=== PATIENT | female | born 1990 ===

== ENCOUNTER 2019-10-14 08:58 | Inpatient (IN) | payer MEDICAID ==
[2019-10-14] MEDS ORDERED: Methylergonovine 0.2 MG/1 ML Amp IM PRN ×2 (11:06→18:56)
[2019-10-14] MEDS ORDERED: Carboprost Tromethamine 250 MCG/1 ML Amp IM PRN (11:06)
[2019-10-14] MEDS ORDERED: Water For Irrigation,Sterile 1,000 ML Container IRR PRN (11:06)
[2019-10-14] MEDS ORDERED: Sodium Chloride 0.9% 10 ML Syringe FLUSH PRN (11:06)
[2019-10-14] MEDS ORDERED: Tranexamic Acid 1,000 MG in Sodium Chloride 0.9% 100 ML IV PRN ×2 (11:06→18:56)
[2019-10-14] MEDS ORDERED: Lidocaine 1% 50 ML MDV INJECT PRN (11:06)
[2019-10-14] MEDS ORDERED: Butorphanol 1 MG/ML SDV IVPUSH PRN (11:06)
[2019-10-14] MEDS ORDERED: Misoprostol 200 MCG Tab PO PRN (11:06)
[2019-10-14] MEDS ORDERED: Sodium Chloride 0.9% 10 ML SDV IV PRN (11:06)
[2019-10-14] MEDS ORDERED: Nalbuphine 10 MG/1 ML Vial IVPUSH PRN (11:06)
[2019-10-14] MEDS ORDERED: Oxytocin/0.9 % Sodium Chloride 30 UNIT/500 ML BAG IV SCH ×2 (11:15→16:15)
[2019-10-14] MEDS: Lactated Ringers 1,000 ML IV SCH ×4 (11:30→18:22)
[2019-10-14] MEDS ORDERED: fentaNYL 100 MCG/2 ML SDV ONE (12:02)
[2019-10-14] MEDS ORDERED: Ropivacaine HCl/PF 100 ML ONE (12:02)
--- NOTE | 2019-10-14 12:27 | PCM.PREANE ---
Preanesthetic Assessment - Anesthesia/Transfusion/Family Hx Anesthesia History: Prior Anesthesia Without Reaction Family History of Anesthesia Reaction: No - Physical Assessment NPO Status Date: 10/14/19 NPO Status Time: 08:00 Height: 1.78 m Weight: 87.543 kg ASA Class: 1 - Lab Values: Laboratory Last Values WBC 21.38 K/uL (4.0-11.0) H 10/14/19 11:25 RBC 4.31 M/uL (4.30-5.90) 10/14/19 11:25 Hgb 11.2 g/dL (12.0-16.0) L 10/14/19 11:25 Hct 34.0 % (36.0-46.0) L 10/14/19 11:25 MCV 78.9 fL (80.0-98.0) L 10/14/19 11:25 MCH 26.0 pg (27.0-32.0) L 10/14/19 11:25 MCHC 32.9 g/dL (31.0-37.0) 10/14/19 11:25 RDW Std Deviation 42.0 fl (28.0-62.0) 10/14/19 11:25 RDW Coeff of Nuzhat 15 % (11.0-15.0) 10/14/19 11:25 Plt Count 275 K/uL (150-400) 10/14/19 11:25 MPV 10.40 fL (7.40-12.00) 10/14/19 11:25 Nucleated RBC % 0.0 /100WBC 10/14/19 11:25 Nucleated RBCs # 0 K/uL 10/14/19 11:25 Blood Type B POSITIVE 10/14/19 11:25 Antibody Screen NEGATIVE 10/14/19 11:25 - Allergies Allergies/Adverse Reactions: Allergies Allergy/AdvReac Type Severity Reaction Status Date / Time No Known Allergies Allergy Verified 10/14/19 09:34 - Acknowledgements Anesthesia Type Planned: Epidural Pt an Appropriate Candidate for the Planned Anesthesia: Yes Alternatives and Risks of Anesthesia Discussed w Pt/Guardian: Yes Pt/Guardian Understands and Agrees with Anesthesia Plan: Yes PreAnesthesia Questionnaire - HOME MEDS Home Medications: Home Meds 95/Iron Fum/Folic/Dha [ + Dha Combo Pack] 1 each PO DAILY 10/14 [History] - CURRENT (IN HOUSE) MEDS Current Meds: Current Medications Butorphanol Tartrate (Stadol) 1 mg IVPUSH ASDIRECTED PRN PRN Reason: Pain Carboprost Tromethamine (Hemabate Ds) 250 mcg IM ASDIRECTED PRN PRN Reason: Post Hemorrhage Tranexamic Acid 1,000 mg/ (Sodium Chloride) 110 mls @ 660 mls/hr IV ONETIME PRN PRN Reason: Bleeding Lactated Ringer's (Ringers, Lactated) 1,000 mls @ 150 mls/hr IV ASDIRECTED BEATRIZ Last Admin: 10/14/19 11:30 Dose: 999 mls/hr Oxytocin/Sodium Chloride (Oxytocin 30 Unit/500 Ml-Ns) 30 unit in 500 mls @ 999 mls/hr IV TITRATE [facility] Lidocaine HCl (Xylocaine 1%) 50 ml INJECT ONETIME PRN PRN Reason: Laceration repair Methylergonovine Maleate (Methergine) 0.2 mg IM ASDIRECTED PRN PRN Reason: Post Hemorrhage Misoprostol (Cytotec) 200 mcg PO ONETIME PRN PRN Reason: Post Hemorrhage Nalbuphine HCl (Nubain) 10 mg IVPUSH ASDIRECTED PRN PRN Reason: Pain (severe 7-10) Sodium Chloride (Saline Flush) 10 ml FLUSH ASDIRECTED PRN PRN Reason: Keep Vein Open Sodium Chloride (Normal Saline) 10 ml IV ASDIRECTED PRN PRN Reason: IV Use Sterile Water (Sterile Water For Irrigation) 1,000 ml IRR ASDIRECTED PRN PRN Reason: delivery Discontinued Medications Fentanyl (Sublimaze) Confirm Administered Dose 100 mcg .ROUTE .STK-MED ONE Stop: 10/14/19 12:03 Ropivacaine (Naropin 0.2%) Confirm Administered Dose 100 mls @ as directed .ROUTE .STK-MED ONE Stop: 10/14/19 12:03
--- NOTE | 2019-10-14 12:30 | PCM.PRNOTE ---
- Free Text/Narrative Note: Anes Note Patietn rquests epidural for L&D. Sitting position, level L3-L4 midline approach. Sterile technique. Chloraprep scrub to lumbar area. Sterile fenestrated drape applied. Epidural space easily achieved single attempt with ease using BROOK technique. BROOK at 3 cm. Cath threaded 5 cm with ease. Cath secured at 9 cm at skin using sterile clear adhesive dressing. 1210 Test 3 cc 1.5% lido with epi negative. 1214 load 10 cc 0.2% ropivicaine with 1 mcg cc fentanyl in slow divided doses. 1220 Pump started wtih 90 cc same solution. Rate is 8 cc hr with 6 cc q 20 min prn bolus. Baylee well. Time with patient [id number] Matthew Merino [employer]PER[employer]
[2019-10-14] MEDS ORDERED: Terbutaline 1 MG/ML SDV SUBCUT PRN (16:04)
--- NOTE | 2019-10-14 18:54 | PCM.DEL ---
L & D Note - General Info Date of Service: 10/14/19 - Delivery Note Labor: Augmented by ARM, Augmented by Oxytocin Delivery Outcome: Livebirth Infant Delivery Method: Spontaneous Vaginal Delivery-Single Presentation: precipitous (nurse pushing with patient) Nuchal Cord: None Prep: Other Anesthesia Type: None Amniotic Fluid Description: Clear Episiotomy Type: None Laceration: None Placenta: Intact, Spontaneous Cord: 3 Vessels Resuscitation Needed: Yes Score 1 min: 4 Score 5 min: 9 - General Info Date of Service: 10/14/19 - Patient Data Weight - Most Recent: 87.543 kg Lab Results Last 24 Hours: Laboratory Results - last 24 hr 10/14/19 10/14/19 Range/Units 11:25 11:25 WBC 21.38 H (4.0-11.0) K/uL RBC 4.31 (4.30-5.90) M/uL Hgb 11.2 L (12.0-16.0) g/dL Hct 34.0 L (36.0-46.0) % MCV 78.9 L (80.0-98.0) fL MCH 26.0 L (27.0-32.0) pg MCHC 32.9 (31.0-37.0) g/dL RDW Std Deviation 42.0 (28.0-62.0) fl RDW Coeff of Nuzhat 15 (11.0-15.0) % Plt Count 275 (150-400) K/uL MPV 10.40 (7.40-12.00) fL Nucleated RBC % 0.0 /100WBC Nucleated RBCs # 0 K/uL Blood Type B POSITIVE Antibody Screen NEGATIVE Med Orders - Current: Current Medications Butorphanol Tartrate (Stadol) 1 mg IVPUSH ASDIRECTED PRN PRN Reason: Pain Carboprost Tromethamine (Hemabate Ds) 250 mcg IM ASDIRECTED PRN PRN Reason: Post Hemorrhage Tranexamic Acid 1,000 mg/ (Sodium Chloride) 110 mls @ 660 mls/hr IV ONETIME PRN PRN Reason: Bleeding Lactated Ringer's (Ringers, Lactated) 1,000 mls @ 150 mls/hr IV ASDIRECTED BEATRIZ Last Admin: 10/14/19 18:22 Dose: 150 mls/hr Oxytocin/Sodium Chloride (Oxytocin 30 Unit/500 Ml-Ns) 30 unit in 500 mls @ 999 mls/hr IV TITRATE BEATRIZ Oxytocin/Sodium Chloride (Oxytocin 30 Unit/500 Ml-Ns) 30 unit in 500 mls @ 2 mls/hr IV TITRATE BEATRIZ; Protocol Last Titration: 10/14/19 17:30 Dose: 8 munits/min, 8 mls/hr Lidocaine HCl (Xylocaine 1%) 50 ml INJECT ONETIME PRN PRN Reason: Laceration repair Methylergonovine Maleate (Methergine) 0.2 mg IM ASDIRECTED PRN PRN Reason: Post Hemorrhage Misoprostol (Cytotec) 200 mcg PO ONETIME PRN PRN Reason: Post Hemorrhage Nalbuphine HCl (Nubain) 10 mg IVPUSH ASDIRECTED PRN PRN Reason: Pain (severe 7-10) Sodium Chloride (Saline Flush) 10 ml FLUSH ASDIRECTED PRN PRN Reason: Keep Vein Open Sodium Chloride (Normal Saline) 10 ml IV ASDIRECTED PRN PRN Reason: IV Use Sterile Water (Sterile Water For Irrigation) 1,000 ml IRR ASDIRECTED PRN PRN Reason: delivery Terbutaline Sulfate (Brethine) 0.25 mg SUBCUT ASDIRECTED PRN PRN Reason: Tacysystole Discontinued Medications Fentanyl (Sublimaze) Confirm Administered Dose 100 mcg .ROUTE .STK-MED ONE Stop: 10/14/19 12:03 Ropivacaine (Naropin 0.2%) Confirm Administered Dose 100 mls @ as directed .ROUTE .STK-MED ONE Stop: 10/14/19 12:03 - Problem List & Annotations (1) Vaginal delivery SNOMED Code(s): 751934218 Code(s): O80 - ENCOUNTER FOR FULL-TERM UNCOMPLICATED DELIVERY Status: Acute Current Visit: Yes - Problem List Review Problem List Initiated/Reviewed/Updated: Yes - My Orders Last 24 Hours: My Active Orders 10/14/19 09:36 Non Stress Test [RC] PER UNIT ROUTINE Up ad Jacquelyn [RC] ASDIRECTED Vital Signs [RC] PER UNIT ROUTINE Resuscitation Status Routine 10/14/19 11:06 Butorphanol [Stadol] 1 mg IVPUSH ASDIRECTED PRN Carboprost Tromethamine [Hemabate DS] 250 mcg IM ASDIRECTED PRN Lidocaine 1% [Xylocaine 1%] 50 ml INJECT ONETIME PRN Methylergonovine [Methergine] 0.2 mg IM ASDIRECTED PRN Nalbuphine [Nubain] 10 mg IVPUSH ASDIRECTED PRN Sodium Chloride 0.9% [Normal Saline] 10 ml IV ASDIRECTED PRN Sodium Chloride 0.9% [Saline Flush] 10 ml FLUSH ASDIRECTED PRN Tranexamic Acid [Cyklokapron] 1,000 mg Sodium Chloride 0.9% [Normal Saline] 100 ml IV ONETIME Water For Irrigation,Sterile [Sterile Water for Irrigation] 1,000 ml IRR ASDIRECTED PRN miSOPROStoL [Cytotec] 200 mcg PO ONETIME PRN 10/14/19 11:07 Patient Status [ADT] Routine Heart Tones [RC] CONTINUOUS Non Stress Test [RC] PER UNIT ROUTINE May Shower [RC] ASDIRECTED Notify Provider [RC] PRN Vaginal Exam [RC] PRN Vital Signs [RC] PER UNIT ROUTINE Scalp Electrode [WOMSER] Per Unit Routine Peripheral IV Insertion Adult [OM.PC] Routine 10/14/19 11:15 Lactated Ringers [Ringers, Lactated] 1,000 ml IV ASDIRECTED Oxytocin/0.9 % Sodium Chloride [Oxytocin 30 Unit/500 ML-NS] 30 unit in 500 ml IV TITRATE 10/14/19 11:25 RPR (SYPHILIS SERO) W/ RFLX [REF] Routine 10/14/19 16:04 Bedrest Bathroom Privileges [RC] ASDIRECTED Communication Order [RC] ASDIRECTED Communication Order [RC] ASDIRECTED Notify Provider [RC] PRN Notify Provider [RC] PRN Notify Provider [RC] STAT Oxygen Therapy [RC] ASDIRECTED Vaginal Exam [RC] PRN Vital Signs [RC] PER UNIT ROUTINE Terbutaline [Brethine] 0.25 mg SUBCUT ASDIRECTED PRN 10/14/19 16:15 Oxytocin/0.9 % Sodium Chloride [Oxytocin 30 Unit/500 ML-NS] 30 unit in 500 ml IV TITRATE Medication Administration Instruction [OM.PC] Q3H
[2019-10-14] MEDS ORDERED: Acetaminophen 500 MG Tab PO PRN (18:56)
[2019-10-14] MEDS ORDERED: Bisacodyl 10 MG Supp RECTAL PRN (18:56)
[2019-10-14] MEDS ORDERED: Witch Hazel Medicated Pads 40/Jar TOP PRN (18:56)
[2019-10-14] MEDS ORDERED: Lanolin 100% Cream 7 GM Tube TOP PRN (18:56)
[2019-10-14] MEDS ORDERED: Benzocaine/Menthol 20%-0.5% Spray 78 GM Cannister TOP PRN (18:56)
[2019-10-14] MEDS ORDERED: Docusate Sodium 100 MG Cap PO PRN (18:56)
[2019-10-14] MEDS ORDERED: Ibuprofen 400 MG Tab PO PRN (18:56)
[2019-10-14] MEDS: Ibuprofen 800 MG Tab PO PRN (21:29)
--- NOTE | 2019-10-14 22:03 | OR ---
SURGEON: Rosa Oneal M.D. DATE OF PROCEDURE: 10/14/2019 PREOPERATIVE DIAGNOSES: 38 and 2/7 weeks' intrauterine , protracted labor with suspected intrauterine growth restriction. POSTOPERATIVE DIAGNOSES: 38 and 2/7 weeks' intrauterine , protracted labor with suspected intrauterine growth restriction. PROCEDURE: Artificial rupture of membranes. Pitocin augmentation of labor. Precipitous vaginal delivery. PRIMARY SURGEON: Rosa Oneal M.D. ANESTHESIA: Epidural. ESTIMATED BLOOD LOSS: Less than 200 mL. FINDINGS: Live-born male, scores of 4 and 9. Weight is pending at the time of dictation. Placenta spontaneous, Schultze intact, with 3 vessels. Perineum intact. COMPLICATIONS: None known. DISPOSITION: Mother and baby in LDR in good condition. BRIEF HISTORY: This is a 29-year-old female, G2, P1-0-0-1. She presented at 1 to 2 cm dilatation. She was kept for observation as she [place] live out of town. She is G2, P1. Over the next 3 to 4 hours, she changed to 3 to 4 cm dilatation, and she received an epidural for pain control. She is known to be group B strep negative. 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 She denied any lesions and examination was negative for lesions, and therefore artificial rupture of membranes was performed when she was 5 to 6 cm dilated. heart tones throughout labor were category 1 with occasional episodes of category 2 heart tones, and over approximately a 4-hour time period she changed from a 5 to a 6 dilatation and therefore Pitocin augmentation was initiated. I received a phone call at [phone] that I should come for delivery, I arrived on the floor 8 minutes later, the baby had already been delivered. The cord was clamped x2 and cut and due to heart tones that had dropped immediately after I was notified, the patient being complete, the nurse did go ahead and have the patient push appropriately as reflected in the 1 minute of 4, and by the time I arrived the baby was receiving positive-pressure ventilation, was pink with good tone, and shortly after I arrived received an at 5 minutes of 9. Pitocin was initiated after delivery of the to assist with delivery of the placenta, which was delivered spontaneous, Schultze intact, with 3 vessels by myself. Prior to delivery of the placenta, cord ABGs had been collected as well as routine cord blood sampling. Upon inspection of the pelvis and perineum, there were no periurethral, vaginal sidewall, cervical, or rectal lacerations. EBL was less than 300 mL. There were no known complications. Mother and baby are in LDR in good condition. SHERLEY CURTIS /[id number]
[2019-10-15] MEDS: Acetaminophen 500 MG Tab PO PRN ×2 (00:41→22:31)
[2019-10-15] MEDS: oxyCODONE 5 MG Tab PO PRN ×3 (00:41→08:38)
[2019-10-15] MEDS: Ibuprofen 800 MG Tab PO PRN ×2 (04:27→11:10)
--- NOTE | 2019-10-15 07:35 | PCM48HPAN ---
Post Anesthesia Note - EVALUATION WITHIN 48HRS OF ANESTHETIC Vital Signs in Normal Range: Yes Patient Participated in Evaluation: Yes Respiratory Function Stable: Yes Airway Patent: Yes Cardiovascular Function Stable: Yes Hydration Status Stable: Yes Pain Control Satisfactory: Yes Nausea and Vomiting Control Satisfactory: Yes Mental Status Recovered: Yes Vital Signs: Last Vital Signs Temp 36.2 C 10/15/19 05:24 Pulse 67 10/15/19 05:24 Resp 19 10/15/19 05:24 BP 121/70 10/15/19 05:24 Pulse Ox 96 10/15/19 05:24
--- NOTE | 2019-10-15 09:09 | PCM.PNPP ---
- General Info Date of Service: 10/15/19 Functional Status: Reports: Pain Controlled (required oxycodone X2 for back pain at epidural site, area is tender to touch, hurts when standing.), Tolerating Diet, Ambulating, Urinating - Review of Systems General: Reports: No Symptoms HEENT: Reports: No Symptoms Pulmonary: Reports: No Symptoms Cardiovascular: Reports: No Symptoms Gastrointestinal: Reports: No Symptoms Genitourinary: Reports: No Symptoms Musculoskeletal: Reports: No Symptoms Skin: Reports: No Symptoms Neurological: Reports: No Symptoms Psychiatric: Reports: No Symptoms - General Info Date of Service: 10/15/19 - Patient Data Vital Signs - Most Recent: Last Vital Signs Temp 36.2 C 10/15/19 05:24 Pulse 67 10/15/19 05:24 Resp 19 10/15/19 05:24 BP 121/70 10/15/19 05:24 Pulse Ox 96 10/15/19 05:24 Weight - Most Recent: 87.543 kg Lab Results - Last 24 Hours: Laboratory Results - last 24 hr 10/14/19 10/14/19 10/14/19 Range/Units 11:25 11:25 18:40 WBC 21.38 H (4.0-11.0) K/uL RBC 4.31 (4.30-5.90) M/uL Hgb 11.2 L (12.0-16.0) g/dL Hct 34.0 L (36.0-46.0) % MCV 78.9 L (80.0-98.0) fL MCH 26.0 L (27.0-32.0) pg MCHC 32.9 (31.0-37.0) g/dL RDW Std Deviation 42.0 (28.0-62.0) fl RDW Coeff of Nuzhat 15 (11.0-15.0) % Plt Count 275 (150-400) K/uL MPV 10.40 (7.40-12.00) fL Nucleated RBC % 0.0 /100WBC Nucleated RBCs # 0 K/uL Cord VBG pH 7.311 (7.25-7.45) Cord VBG Base Excess -4 (-10--2) Blood Type B POSITIVE Antibody Screen NEGATIVE 10/15/19 Range/Units 06:15 WBC (4.0-11.0) K/uL RBC (4.30-5.90) M/uL Hgb 10.4 L (12.0-16.0) g/dL Hct 31.6 L (36.0-46.0) % MCV (80.0-98.0) fL MCH (27.0-32.0) pg MCHC (31.0-37.0) g/dL RDW Std Deviation (28.0-62.0) fl RDW Coeff of Nuzhat (11.0-15.0) % Plt Count (150-400) K/uL MPV (7.40-12.00) fL Nucleated RBC % /100WBC Nucleated RBCs # K/uL Cord VBG pH (7.25-7.45) Cord VBG Base Excess (-10--2) Blood Type Antibody Screen Med Orders - Current: Current Medications Acetaminophen (Tylenol Extra Strength) 500 mg PO Q4H PRN PRN Reason: Pain Acetaminophen (Tylenol Extra Strength) 1,000 mg PO Q4H PRN PRN Reason: Pain Last Admin: 10/15/19 00:41 Dose: 1,000 mg Benzocaine/Menthol (Dermoplast Pain Relief 20%-0.5% [place]) 78 gm TOP ASDIRECTED PRN PRN Reason: Perineal Comfort Measure Last Admin: 10/14/19 20:27 Dose: 78 gm Bisacodyl (Dulcolax) 10 mg RECTAL ONETIME PRN PRN Reason: Constipation Docusate Sodium (Colace) 100 mg PO BID PRN PRN Reason: Constipation Last Admin: 10/15/19 08:43 Dose: 100 mg Emollient Ointment (Lansinoh Hpa) 0 gm TOP ASDIRECTED PRN PRN Reason: Sore Nipples Last Admin: 10/14/19 20:29 Dose: 7 gm Tranexamic Acid 1,000 mg/ (Sodium Chloride) 110 mls @ 660 mls/hr IV ONETIME PRN PRN Reason: Bleeding Ibuprofen (Motrin) 400 mg PO Q4H PRN PRN Reason: Pain Ibuprofen (Motrin) 800 mg PO Q6H PRN PRN Reason: Pain Last Admin: 10/15/19 04:27 Dose: 800 mg Methylergonovine Maleate (Methergine) 0.2 mg IM ONETIME PRN PRN Reason: Excessive Vaginal Bleeding Oxycodone HCl (Oxycodone) 5 mg PO Q2H PRN PRN Reason: Pain Last Admin: 10/15/19 08:38 Dose: 5 mg Witch Ame (Tucks) 1 pad TOP ASDIRECTED PRN PRN Reason: comfort care Last Admin: 10/14/19 20:28 Dose: 1 pad Discontinued Medications Butorphanol Tartrate (Stadol) 1 mg IVPUSH ASDIRECTED PRN PRN Reason: Pain Carboprost Tromethamine (Hemabate Ds) 250 mcg IM ASDIRECTED PRN PRN Reason: Post Hemorrhage Fentanyl (Sublimaze) Confirm Administered Dose 100 mcg .ROUTE .[employer] ONE Stop: 10/14/19 12:03 Last Admin: 10/15/19 07:18 Dose: Not Given Tranexamic Acid 1,000 mg/ (Sodium Chloride) 110 mls @ 660 mls/hr IV ONETIME PRN PRN Reason: Bleeding Lactated Ringer's (Ringers, Lactated) 1,000 mls @ 150 mls/hr IV ASDIRECTED BEATRIZ Last Admin: 10/14/19 18:22 Dose: 150 mls/hr Oxytocin/Sodium Chloride (Oxytocin 30 Unit/500 Ml-Ns) 30 unit in 500 mls @ 999 mls/hr IV TITRATE BEATRIZ Ropivacaine (Naropin 0.2%) Confirm Administered Dose 100 mls @ as directed .ROUTE .[employer] ONE Stop: 10/14/19 12:03 Last Admin: 10/15/19 07:18 Dose: Not Given Oxytocin/Sodium Chloride (Oxytocin 30 Unit/500 Ml-Ns) 30 unit in 500 mls @ 2 mls/hr IV TITRATE BEATRIZ; Protocol Last Titration: 10/14/19 17:30 Dose: 8 munits/min, 8 mls/hr Lidocaine HCl (Xylocaine 1%) 50 ml INJECT ONETIME PRN PRN Reason: Laceration repair Methylergonovine Maleate (Methergine) 0.2 mg IM ASDIRECTED PRN PRN Reason: Post Hemorrhage Misoprostol (Cytotec) 200 mcg PO ONETIME PRN PRN Reason: Post Hemorrhage Nalbuphine HCl (Nubain) 10 mg IVPUSH ASDIRECTED PRN PRN Reason: Pain (severe 7-10) Sodium Chloride (Saline Flush) 10 ml FLUSH ASDIRECTED PRN PRN Reason: Keep Vein Open Sodium Chloride (Normal Saline) 10 ml IV ASDIRECTED PRN PRN Reason: IV Use Sterile Water (Sterile Water For Irrigation) 1,000 ml IRR ASDIRECTED PRN PRN Reason: delivery Terbutaline Sulfate (Brethine) 0.25 mg SUBCUT ASDIRECTED PRN PRN Reason: Tacysystole - Infant Interaction Disposition, : [place] in Room with Family Infant Interaction: Holding Infant Feeding: Breastfed ; Nursed Well - Recovery Exam Fundal Tone: Firm Fundal Level: 1 Fingerbreadths Below Umbilicus Fundal Placement: Midline Lochia Amount: Small Lochia Color: Rubra/Red Perineum Description: Intact, Minimal Bruising/Swelling Episiotomy/Laceration: None Bladder Status: Nonpalpable, Voiding Urinary Elimination: Voided - Exam General: Alert, Oriented HEENT: Pupils Equal Neck: Supple Lungs: Clear to Auscultation, Normal Respiratory Effort Cardiovascular: Regular Rate, Regular Rhythm GI/Abdominal Exam: Normal Bowel Sounds, Non-Tender, No Organomegaly, No Mass Extremities: Normal Inspection, Non-Tender, No Pedal Edema Skin: Warm, Dry, Intact Neurological: No New Focal Deficit Psy/Mental Status: Alert, Normal Affect, Normal Mood Physical Findings Comment:: back is tender over epidural site, no CVA tenderness - Problem List & Annotations (1) Vaginal delivery SNOMED Code(s): 004660360 Code(s): O80 - ENCOUNTER FOR FULL-TERM UNCOMPLICATED DELIVERY Status: Acute Current Visit: Yes - Problem List Review Problem List Initiated/Reviewed/Updated: Yes - My Orders Last 24 Hours: My Active Orders 10/14/19 09:36 Non Stress Test [RC] PER UNIT ROUTINE Up ad Jacquelyn [RC] ASDIRECTED Vital Signs [RC] PER UNIT ROUTINE 10/14/19 11:07 Heart Tones [RC] CONTINUOUS Non Stress Test [RC] PER UNIT ROUTINE May Shower [RC] ASDIRECTED Notify Provider [RC] PRN Vaginal Exam [RC] PRN Vital Signs [RC] PER UNIT ROUTINE 10/14/19 11:25 RPR (SYPHILIS SERO) W/ RFLX [REF] Routine 10/14/19 16:04 Bedrest Bathroom Privileges [RC] ASDIRECTED Communication Order [RC] ASDIRECTED Communication Order [RC] ASDIRECTED Notify Provider [RC] PRN Notify Provider [RC] PRN Notify Provider [RC] STAT Oxygen Therapy [RC] ASDIRECTED Vaginal Exam [RC] PRN Vital Signs [RC] PER UNIT ROUTINE 10/14/19 18:56 Patient Status [ADT] Routine May Shower [RC] ASDIRECTED Up ad Jacquelyn [RC] ASDIRECTED Vital Signs [RC] PER UNIT ROUTINE Acetaminophen [Tylenol Extra Strength] 1,000 mg PO Q4H PRN Acetaminophen [Tylenol Extra Strength] 500 mg PO Q4H PRN Benzocaine/Menthol [Dermoplast Pain Relief 20%-0.5% [place]] 78 gm TOP ASDIRECTED PRN Docusate Sodium [Colace] 100 mg PO BID PRN Ibuprofen [Motrin] 400 mg PO Q4H PRN Ibuprofen [Motrin] 800 mg PO Q6H PRN Lanolin [Lansinoh HPA] See Dose Instructions TOP ASDIRECTED PRN Methylergonovine [Methergine] 0.2 mg IM ONETIME PRN Tranexamic Acid [Cyklokapron] 1,000 mg Sodium Chloride 0.9% [Normal Saline] 100 ml IV ONETIME Witch Ame [Tucks] 1 pad TOP ASDIRECTED PRN bisacodyL [Dulcolax] 10 mg RECTAL ONETIME PRN oxyCODONE 5 mg PO Q2H PRN Assess Lochia [WOMSER] Per Unit Routine Assess Uterine Involution [WOMSER] Per Unit Routine Perineal Care [OM.PC] Per Unit Routine Peripheral IV Discontinue [OM.PC] Routine Resuscitation Status Routine 10/14/19 Dinner Regular Diet [DIET]
--- NOTE | 2019-10-15 15:08 | PCM.SN ---
- Free Text/Narrative Note: Asked to see patient because of persistant low back pain post labor epidural and vaginal delivery. Pt c/o pain at site of epidural entry. denies radicular pain, denies loss of bowel or bladder control. States she felt like her back was going to give out when standing next to babies bassinette, and when walking to the bathroom. Went back to bed without incident. On exam has focal tenderness at site of epidural insertion. Has lesser tenderness to palpitation of the paraspinous muscles. Normal sensation to touch in lower extremities. normal strength of toe flexors and extensors, ankle flex and ext, knee flex and ext, and hip flexion. impression: ligamentous pain from epidural insertion and paraspinous pain and tenderness from protective reaction to the pain. I see no six or sign of neurologic complication. Would recommend continued heat or cold to the lower back, warm tub bath if possible. acetaminophen and/or non-steroidals for pain. Have asked pt and informed nurse that patient is to be assisted when standing or going to the bathroom to monitor for bsck spasm and prevent possible injury from a fall
[2019-10-15] MEDS ORDERED: hydrOXYzine Pamoate 25 MG Cap PO PRN (15:45)
[2019-10-15] MEDS ORDERED: Cyclobenzaprine 10 MG Tab PO PRN (15:46)
[2019-10-15] MEDS: Ketorolac 30 MG/ML SDV IVPUSH PRN ×2 (16:46→22:59)
[2019-10-16] MEDS: Ibuprofen 800 MG Tab PO PRN ×2 (06:14→14:25)
[2019-10-16] MEDS: oxyCODONE 5 MG Tab PO PRN (09:18)
[2019-10-16] MEDS ORDERED: Sertraline 50 MG Tab PO ONE (09:39)
--- NOTE | 2019-10-16 09:43 | PCM.PNPP ---
- General Info Date of Service: 10/16/19 Subjective Update: 29yo P2 s/p , PPD2 , patient denies any complains Her mood is good today She had some backpain but has been cleared by anesthesia Functional Status: Reports: Pain Controlled, Tolerating Diet, Ambulating, Urinating - Review of Systems General: Reports: No Symptoms HEENT: Reports: No Symptoms Pulmonary: Reports: No Symptoms Cardiovascular: Reports: No Symptoms Gastrointestinal: Reports: No Symptoms Genitourinary: Reports: No Symptoms Musculoskeletal: Reports: No Symptoms Skin: Reports: No Symptoms Neurological: Reports: No Symptoms Psychiatric: Reports: No Symptoms - General Info Date of Service: 10/16/19 - Patient Data Vital Signs - Most Recent: Last Vital Signs Temp 36.3 C 10/16/19 08:30 Pulse 76 10/16/19 08:30 Resp 16 10/16/19 08:30 BP 102/64 10/16/19 08:30 Pulse Ox 98 10/16/19 08:30 Weight - Most Recent: 87.543 kg Med Orders - Current: Current Medications Acetaminophen (Tylenol Extra Strength) 500 mg PO Q4H PRN PRN Reason: Pain Acetaminophen (Tylenol Extra Strength) 1,000 mg PO Q4H PRN PRN Reason: Pain Last Admin: 10/15/19 22:31 Dose: 1,000 mg Benzocaine/Menthol (Dermoplast Pain Relief 20%-0.5% [place]) 78 gm TOP ASDIRECTED PRN PRN Reason: Perineal Comfort Measure Last Admin: 10/14/19 20:27 Dose: 78 gm Bisacodyl (Dulcolax) 10 mg RECTAL ONETIME PRN PRN Reason: Constipation Cyclobenzaprine HCl (Flexeril) 10 mg PO Q6H PRN PRN Reason: Pain Last Admin: 10/16/19 00:03 Dose: 10 mg Docusate Sodium (Colace) 100 mg PO BID PRN PRN Reason: Constipation Last Admin: 10/15/19 08:43 Dose: 100 mg Emollient Ointment (Lansinoh Hpa) 0 gm TOP ASDIRECTED PRN PRN Reason: Sore Nipples Last Admin: 10/14/19 20:29 Dose: 7 gm Hydroxyzine Pamoate (Vistaril) 50 mg PO Q6H PRN PRN Reason: Anxiety Last Admin: 10/15/19 20:05 Dose: 50 mg Tranexamic Acid 1,000 mg/ (Sodium Chloride) 110 mls @ 660 mls/hr IV ONETIME PRN PRN Reason: Bleeding Ibuprofen (Motrin) 400 mg PO Q4H PRN PRN Reason: Pain Ibuprofen (Motrin) 800 mg PO Q6H PRN PRN Reason: Pain Last Admin: 10/16/19 06:14 Dose: 800 mg Ketorolac Tromethamine (Toradol) 30 mg IVPUSH Q6H PRN PRN Reason: Pain (moderate 4-6) Stop: 10/20/19 15:44 Last Admin: 10/15/19 22:59 Dose: 30 mg Methylergonovine Maleate (Methergine) 0.2 mg IM ONETIME PRN PRN Reason: Excessive Vaginal Bleeding Oxycodone HCl (Oxycodone) 5 mg PO Q2H PRN PRN Reason: Pain Last Admin: 10/16/19 09:18 Dose: 5 mg Witch Ame (Tucks) 1 pad TOP ASDIRECTED PRN PRN Reason: comfort care Last Admin: 10/14/19 20:28 Dose: 1 pad Discontinued Medications Butorphanol Tartrate (Stadol) 1 mg IVPUSH ASDIRECTED PRN PRN Reason: Pain Carboprost Tromethamine (Hemabate Ds) 250 mcg IM ASDIRECTED PRN PRN Reason: Post Hemorrhage Fentanyl (Sublimaze) Confirm Administered Dose 100 mcg .ROUTE .[employer]-MED ONE Stop: 10/14/19 12:03 Last Admin: 10/15/19 07:18 Dose: Not Given Tranexamic Acid 1,000 mg/ (Sodium Chloride) 110 mls @ 660 mls/hr IV ONETIME PRN PRN Reason: Bleeding Lactated Ringer's (Ringers, Lactated) 1,000 mls @ 150 mls/hr IV ASDIRECTED BEATRIZ Last Admin: 10/14/19 18:22 Dose: 150 mls/hr Oxytocin/Sodium Chloride (Oxytocin 30 Unit/500 Ml-Ns) 30 unit in 500 mls @ 999 mls/hr IV TITRATE BEATRIZ Ropivacaine (Naropin 0.2%) Confirm Administered Dose 100 mls @ as directed .ROUTE .[employer]-MED ONE Stop: 02/01/20 12:03 Last Admin: 10/15/19 07:18 Dose: Not Given Oxytocin/Sodium Chloride (Oxytocin 30 Unit/500 Ml-Ns) 30 unit in 500 mls @ 2 mls/hr IV TITRATE BEATRIZ; Protocol Last Titration: 10/14/19 17:30 Dose: 8 munits/min, 8 mls/hr Lidocaine HCl (Xylocaine 1%) 50 ml INJECT ONETIME PRN PRN Reason: Laceration repair Methylergonovine Maleate (Methergine) 0.2 mg IM ASDIRECTED PRN PRN Reason: Post Hemorrhage Misoprostol (Cytotec) 200 mcg PO ONETIME PRN PRN Reason: Post Hemorrhage Nalbuphine HCl (Nubain) 10 mg IVPUSH ASDIRECTED PRN PRN Reason: Pain (severe 7-10) Sodium Chloride (Saline Flush) 10 ml FLUSH ASDIRECTED PRN PRN Reason: Keep Vein Open Sodium Chloride (Normal Saline) 10 ml IV ASDIRECTED PRN PRN Reason: IV Use Sterile Water (Sterile Water For Irrigation) 1,000 ml IRR ASDIRECTED PRN PRN Reason: delivery Terbutaline Sulfate (Brethine) 0.25 mg SUBCUT ASDIRECTED PRN PRN Reason: Tacysystole - Interaction Infant Disposition, : [place] in Room with Family Infant Interaction: Holding Infant Feeding: Breastfed Infant; Nursed Well - Recovery Exam Fundal Tone: Firm Fundal Level: 1 Fingerbreadths Below Umbilicus Fundal Placement: Midline Lochia Amount: Scant Lochia Color: Rubra/Red Perineum Description: Intact, Minimal Bruising/Swelling Episiotomy/Laceration: None Bladder Status: Voiding Urinary Elimination: Voided - Exam General: Alert, Oriented HEENT: Pupils Equal Neck: Supple Lungs: Clear to Auscultation Cardiovascular: Regular Rate, Regular Rhythm GI/Abdominal Exam: Normal Bowel Sounds Extremities: Normal Inspection Wound/Incisions: Healing Well Neurological: No New Focal Deficit - Problem List & Annotations (1) Vaginal delivery SNOMED Code(s): 641342561 Code(s): O80 - ENCOUNTER FOR FULL-TERM UNCOMPLICATED DELIVERY Status: Acute Current Visit: Yes - Problem List Review Problem List Initiated/Reviewed/Updated: Yes - My Orders Last 24 Hours: My Active Orders 10/16/19 09:39 Sertraline [Zoloft] 50 mg PO ONETIME ONE - Assessment Assessment:: 29yo P2 s/p , PPD2 and supplementing - Plan Plan:: Discharge home Follow up in 2 weeks for mood Pain control as needed
[2019-10-16] MEDS: Acetaminophen 500 MG Tab PO PRN (14:24)
== END 2019-10-16 18:10 | disposition home or self-care (01) | DRG 807 ==
LOC: MW.OBCHECK 08:58 → MW.OB 09:00 → MW.OBCHECK 11:06 → MW.OB 11:07 → OBSVTOIN 18:56 → MW.OB 21:45
PROVIDERS: ADMIT Obstetrics & Gynecology; ATTEND Obstetrics & Gynecology
PROC: 10E0XZZ Delivery of Products of Conception, External Approach (ICD-10-PCS; principal; 2019-10-14)
PROC: 10907ZC Drainage of Amniotic Fluid, Therapeutic from Products of Conception, Via Natural or Artificial Opening (ICD-10-PCS; 2019-10-14)
PROC: 3E0R3BZ Introduction of Anesthetic Agent into Spinal Canal, Percutaneous Approach (ICD-10-PCS; 2019-10-14)
PROC: 00HU33Z Insertion of Infusion Device into Spinal Canal, Percutaneous Approach (ICD-10-PCS; 2019-10-14)
DX: O99.334 Smoking (tobacco) complicating childbirth (principal); Z37.0 Single live birth; F17.210 Nicotine dependence, cigarettes, uncomplicated; Z3A.38 38 weeks gestation of pregnancy; Z79.899 Other long term (current) drug therapy
CPT/HCPCS: 01967; 36415; 51702; 59025; 82803; 85014; 85018; 85027; 86592; 86850; 86900; 86901; 88307; A9270-GY; J1885; J2590; J2795; J3010; J7120